=== PATIENT | male | born 1970 | race Caucasian/White ===

== ENCOUNTER → 2018-04-09 17:51 | Outpatient (CLI) | payer OTHER, SELFPAY ==
[2018-04-09 18:14] LABS: Hemoglobin A1c 6.3 % (4.2-6.3)
[2018-04-09 18:37] LABS: AST(SGOT) 25 U/L (15-37); Alanine Aminotransfer ALT/SGPT 56 U/L (16-61); Albumin, Serum 4.2 g/dL (3.2-5.0); Alkaline Phosphatase 64 U/L (45-117); Anion Gap 8 (5-15); BUN 20 mg/dL (7-18); BUN/Creat Ratio 19.2 RATIO (10-20); Bilirubin, Direct 0.11 mg/dL (0.00-0.30); Chloride 102 mmol/L (98-107); Cholesterol 160 mg/dL (200); Creatinine, Serum 1.04 mg/dL (0.70-1.30); EST Glomerular Filtration Rate 81 mL/min (>60); Est Glom Filt Rate - Afr Amer 98 mL/min (>60); Globulin 3.1 g/dL (2.2-4.2); Glucose 89 mg/dL (74-106); High Density Lipoprotein 45 mg/dL; Potassium 4.3 mmol/L (3.5-5.1); Protein, Total 7.3 g/dL (6.4-8.2); Sodium Level 139 mmol/L (136-145); Triglycerides 148 mg/dL; Very Low Density Lipoprotein 30 mg/dL (5-40)
[2018-04-09 18:46] LABS: Microalbumin,Random Urine 8.8 mg/L (NO RANGE EST.); Microalbumin:Creatinine Ratio 6.1 mg/g CRE (<30 mg/g CRE)
--- OUTSIDE RECORDS SUMMARY | 2018-06-14 08:06 | XMS RPT_ITS | Summary of Care ---
:1970 Author Organization [facility] Address [address] [place] [address] Phone Care Team Providers Name Role Phone Devorah Lu MD Primary Care Provider Reason for Visit Reason Comments Sinus Congestion s/sx started about 2 weeks ago, states was rxed an antibiotic per [facility], states did feel better while taking, but s/sx returned. Currently complains of nasal congestion, a headache, bilateral eye pressure, a cough that is occasionally productive with clear sputum, and feeling fatigued. Other states is taking more rx meds than in med list, but cannot remember what they are Encounter Details Date Type Department Care Team Description 02/22/2018 Office Visit [facility] Elizabeth Diana, Viral illness [place] [employer] (Primary Dx) [address] [place] [address] [place] [address] [phone] Allergies No Known Allergiesas of this encounter Medications Prescription Sig. Disp. Refills Start Date End Date Status LISINOPRIL PO Take by mouth. Active METFORMIN HCL PO Take by mouth. Active predniSONE 20 MG Tab Days 1-3 take 2 9 tablet 0 02/22/2018 Active tabletIndications: Viral tabs po daily, illness days 4-6 take 1 tab po daily as of this encounter Active Problems No known active problems Social History Tobacco Use Types Packs/Day Years Used Date Never Smoker Smokeless Tobacco: Never Used Alcohol Use Drinks/Week oz/Week Comments Yes occasional Sex Assigned at Date Recorded Not on file as of this encounter Last Filed Vital Signs Vital Sign Reading Time Taken Blood Pressure 133/86 02/22/2018 5:11 PM EST Pulse 73 02/22/2018 5:11 PM EST Temperature 36.6 ??C (97.8 ??F) 02/22/2018 5:11 PM EST Respiratory Rate 16 02/22/2018 5:11 PM EST Oxygen Saturation 98% 02/22/2018 5:11 PM EST Inhaled Oxygen Concentration - - Weight 97.1 kg (214 lb 1.6 oz) 02/22/2018 5:11 PM EST Height 172.7 cm (5' 8) 02/22/2018 5:11 PM EST Body Mass Index 32.55 02/22/2018 5:11 PM EST in this encounter Instructions Patient Instructions - Elizabeth Diana CNP - 02/22/2018 5:28 PM ESTStart prednisone as prescribed. Continue all other medications as previously prescribed by other providers. Follow-up with Primary Care Provider in 5-7 days if not improving or worsening of symptoms or blood glucose greater than 300 Go to the nearest Emergency Department for any Chest Pain or Shortness of Breath or blood glucose greater than 400 in this encounter Progress Notes Elizabeth Diana CNP - 02/22/2018 5:00 PM ESTFormatting of this note may be different from the original. URGENT CARE eNCOUnter CHIEF COMPLAINT Sinus Congestion (s/sx started about 2 weeks ago, states was rxed an antibiotic per [facility], states did feel better while taking, but s/sx returned. Currently complains of nasal congestion, a headache, bilateral eye pressure, a cough that is occasionally productive with clear sputum, and feeling fatigued.) and Other (states is taking more rx meds than in med list, but cannot remember what they are) CATRACHITO Sexton is a 47 y.o. male who presents today for continued sinus congestion x 3 weeks. He denies smoking or seasonal allergy hx. He states that he was RX'd a 7 day course of Amoxicillin by [facility] & he was doing better then 3 days ago the congestion returned w/out fever. He states that he is not taking anything for his symptoms currently. He denies sore throat or ear pain. She does complain of joint pain & generalized malaise. He has not received a Flu Vacc this season REVIEW OF SYSTEMS Review of Systems Constitutional: Negative for fever. HENT: Positive for congestion. Negative for ear pain and sore throat. Respiratory: Negative for cough. Cardiovascular: Negative for chest pain. Skin: Negative for rash. PAST MEDICAL HISTORY Past Medical History: Diagnosis Date ??? Diabetes mellitus ??? Essential hypertension, benign ??? Hyperlipidemia SURGICAL HISTORY Past Surgical History: Procedure Laterality Date ??? OTHER SURGICAL broken wrist repaired x2 CURRENT MEDICATIONS Current Outpatient Prescriptions Medication Sig Dispense Refill ??? LISINOPRIL PO Take by mouth. ??? METFORMIN HCL PO Take by mouth. No current facility-administered medications for this visit. ALLERGIES No Known Allergies FAMILY HISTORY Family History Problem Relation Age of Onset ??? Myocardial Infarction Father SOCIAL HISTORY Social History Social History ??? Marital status: Single Spouse name: N/A ??? Number of children: N/A ??? Years of education: N/A Occupational History ??? Not on file. Social History Main Topics ??? Smoking status: Never Smoker ??? Smokeless tobacco: Never Used ??? Alcohol use Yes Comment: occasional ??? Drug use: No ??? Sexual activity: Not on file Other Topics Concern ??? Domestic Violence No Social History Narrative ??? No narrative on file PHYSICAL EXAM Blood pressure 133/86, pulse 73, temperature 97.8 ??F (36.6 ??C), temperature source Temporal, resp.rate 16, height 1.727 m (5' 8), weight 97.1 kg (214 lb 1.6 oz), SpO2 98 %. Physical Exam Constitutional: He appears well-developed and well-nourished. HENT: Right Ear: Tympanic membrane normal. Left Ear: Tympanic membrane normal. Nose: Right sinus exhibits no maxillary sinus tenderness and no frontal sinus tenderness. Left sinusexhibits no maxillary sinus tenderness and no frontal sinus tenderness. Mouth/Throat: Oropharynx is clear and moist. Neck: Normal range of motion. Cardiovascular: Normal rate and regular rhythm. Lymphadenopathy: He has no cervical adenopathy. Nursing note and vitals reviewed. Diagnosis, Assessment & Plan: Camilo was seen today for sinus congestion and other. Diagnoses and all orders for this visit: Viral illness - predniSONE 20 MG Tab tablet; Days 1-3 take 2 tabs po daily, days 4-6 take 1 tab po daily Other orders - LISINOPRIL PO; Take by mouth. - METFORMIN HCL PO; Take by mouth. Start prednisone as prescribed. Continue all other medications as previously prescribed by other providers. Follow-up with Primary Care Provider in 5-7 days if not improving or worsening of symptoms or blood glucose greater than 300 Go to the nearest Emergency Department for any Chest Pain or Shortness of Breath or blood glucose greater than 400 Elizabeth Diana CNP 02/22/2018 in this encounter Plan of Treatment Health Maintenance Due Date Last Done Comments HIV SCREENING DISCUSSION 1981 TETANUS 1986 TDAP (ADULT) 12/23/1987 LIPID SCREENING 2008 INFLUENZA VACCINE (#1) 2017 as of this encounter Visit Diagnoses Diagnosis Viral illness - Primary Unspecified viral infection, in conditions classified elsewhere and of unspecified site
--- OUTSIDE RECORDS SUMMARY | 2018-06-14 08:07 | XMS RPT_ITS | Summary of Care ---
:1970 Author Organization [facility] Address [address] [place] [address] Phone Care Team Providers Name Role Phone Devorah Lu MD Primary Care Provider Reason for Referral Radiology (Emergency) Status Reason Specialty Diagnoses / Referred By Referred To Procedures Contact Contact New Request Procedures Ashok Irwin MD [address] [place] [phone] Radiology (Emergency) Status Reason Specialty Diagnoses / Referred By Referred To Procedures Contact Contact New Request Procedures Ashok Irwin MD [address] [place] [id number] Reason for Visit Reason Comments Hypertension out of BP meds Encounter Details Date Type Department Care Team Description 03/28/2018 [facility] Emergency Department [address] [place] [address] Allergies No Known Allergiesas of this encounter Medications Prescription Sig. Disp. Refills Start Date End Date Status LISINOPRIL PO Take by mouth. Active METFORMIN HCL PO Take 500 mg by Active mouth. predniSONE 20 MG Days 1-3 take 9 tablet 0 02/22/2018 Active Tab 2 tabs po tabletIndications: daily, days Viral illness 4-6 take 1 tab po daily diltiazem 120 MG Take 120 mg by 3 02/18/2018 Active Cap SR 24HR capsule mouth daily. XL pantoprazole 40 MG 1 (ONE) TABLET 3 02/18/[address] DR TWO TIMES DAILY atorvastatin 10 MG Take 10 mg by 3 02/18/2018 Active Tab tablet mouth daily. metformin 500 MG 2 (TWO) TABLET 3 02/18/2018 03/28/2018 Discontinued Tab tablet AT BEDTIME as of this encounter Active Problems Problem Noted Date Obesity: body mass index of 30.0-34.9 03/28/2018 Hypertensive urgency 03/28/2018 History of hypertension 03/28/2018 Nonintractable headache 03/28/2018 Social History Tobacco Use Types Packs/Day Years Used Date Never Smoker Smokeless Tobacco: Never Used Alcohol Use Drinks/Week oz/Week Comments Yes occasional Sex Assigned at Date Recorded Not on file as of this encounter Last Filed Vital Signs Vital Sign Reading Time Taken Blood Pressure 144/92 03/28/2018 1:34 PM EST Pulse 55 03/28/2018 1:34 PM EST Temperature 36.7 ??C (98 ??F) 03/28/2018 1:34 PM EST Respiratory Rate 18 03/28/2018 1:34 PM EST Oxygen Saturation 97% 03/28/2018 1:34 PM EST Inhaled Oxygen Concentration - - Weight 90.7 kg (200 lb) 03/28/2018 11:10 AM EST Height 172.7 cm (5' 8) 03/28/2018 11:10 AM EST Body Mass Index 30.41 03/28/2018 11:10 AM EST in this encounter Plan of Treatment Scheduled Tests Name Priority Associated Diagnoses Order Schedule ECG STAT One Time for 1 Occurrences starting 03/28/2018 until 03/28/2018 Health Maintenance Due Date Last Done Comments HIV SCREENING DISCUSSION 1981 TETANUS 1986 TDAP (ADULT) 12/23/1987 LIPID SCREENING 2008 INFLUENZA VACCINE (#1) 2017 01/05/2015, 01/20/2014, 11/30/2012 as of this encounter Procedures Procedure Name Priority Date/Time Associated Comments Diagnosis URINALYSIS, MACRO STAT 03/28/2018 11:30 Results for this AM EST procedure are in the results section. URINE MICROSCOPIC STAT 03/28/2018 11:30 Results for this AM EST procedure are in the results section. CBC, EDIF, PLATELET STAT 03/28/2018 11:05 Results for this AM EST procedure are in the results section. TROPONIN STAT 03/28/2018 11:05 Results for this AM EST procedure are in the results section. COMPREHENSIVE STAT 03/28/2018 11:05 Results for this METABOLIC PANEL AM EST procedure are in the results section. in this encounter Results URINE MICROSCOPIC (03/28/2018 11:30 AM) WBC, URINE NEGATIVE NEGATIVE /HPF [address] RBC, URINE 1 TO 5 NEGATIVE /HPF [address] Epithelial Cells UA NONE /HPF [address] Mucus NEGATIVE NEGATIVE [address] BACTERIA, URINE NEGATIVE NEGATIVE [address] CRYSTALS, URINE NONE NONE [address] CASTS, URINE NONE NONE /LPF [address] COMMENT, URINE CULTURE CRITERIA NOT MET, [facility] NO CULTURE PERFORMED. [address] Performing Organization Address City/[facility]/Zipcode Phone Number [address] [address] [facility] URINALYSIS, MACRO (03/28/2018 11:30 AM) COLOR, URINE YELLOW YELLOW [address] APPEARANCE, URINE CLEAR CLEAR [address] SPECIFIC GRAVITY, URINE 1.015 1.010 - 1.[address] PH URINE 7.0 5.0 - 7.[address] PROTEIN, URINE NEGATIVE NEGATIVE mg/dl [address] GLUCOSE, URINE NEGATIVE NEGATIVE mg/dl [address] KETONES, URINE NEGATIVE NEGATIVE mg/dl [address] BILIRUBIN, URINE NEGATIVE NEGATIVE [address] BLOOD, URINE DIPSTICK TRACE-LYSED (A) NEGATIVE [address] NITRITES, URINE NEGATIVE NEGATIVE [address] UROBILINOGEN, URINE 0.2 0.2 - 1.0 mg/dl [address] LEUKOCYTE ESTERASE, URINE NEGATIVE NEGATIVE [address] Performing Organization Address City/[facility]/Zipcode Phone Number [address] [address] [facility] TROPONIN (03/28/2018 11:05 AM) TROPONIN <0.02 0 - 0.08 ng/mL [address] Performing Organization Address City/State/Zipcode Phone Number [address] [address] [facility] COMPREHENSIVE METABOLIC PANEL (03/28/2018 11:05 AM) GLUCOSE 101 (H) 70 - 100 MG/DL [address] NORMAL <100 mg/dL [facility] PREDIABETES 101-126 mg/dL DIABETES 126 mg/dL or higher BUN 14 7 - 20 MG/DL [address] CREATININE SERUM 1.0 0.66 - 1.25 MG/DL [address] SODIUM 135 (L) 136 - 145 MMOL/L [address] POTASSIUM 4.1 3.5 - 5.1 MMOL/L [address] CHLORIDE 99 98 - 107 MMOL/L [address] CALCIUM 9.5 8.4 - 10.2 MG/DL [address] PROTEIN, TOTAL 7.8 6.3 - 8.2 GM/DL [address] ALBUMIN 4.7 3.5 - 5.0 G/dl [address] BILIRUBIN, TOTAL 0.8 0.2 - 1.2 MG/DL [address] AST 38 15 - 41 IU/L [address] ALKALINE PHOSPHATASE 50 38 - 126 IU/L [address] CARBON DIOXIDE (CO2) 28 22 - 30 MMOL/L [address] A/G Ratio 1.5 1.3 - 2.[address] ALT 59 17 - 63 IU/L [address] ESTIMATED GFR, NON >60 ml/min/1.73sq.m [address] ESTIMATED GFR, >60 ml/min/1.73sq.m [address] GFR COMMENT Average GFR for 40-49 years old = 99. [facility] Comment: [facility] Chronic Kidney disease, GFR = <60. [facility] - Kidney failure, GFR = <15. [facility] The GFR estimate is not adjusted for extreme body surface area or acute process, nor has it been validated for women or ethnic groups other than and . Performing Organization Address City/State/Zipcode Phone Number [address] [place] [address] [facility] CBC, EDIF, PLATELET (03/28/2018 11:05 AM) WBC (WHITE BLOOD COUNT) 7.8 3.6 - 11.0 /cmm [address] RBC 4.94 4.0 - 6.1 /cmm [address] HEMOGLOBIN (HGB) 14.3 14.0 - 18.0 G/DL [address] HEMATOCRIT (HCT) 41.6 (L) 42.0 - 52.0 % [address] MEAN CELL VOLUME 84.3 80.0 - 100.[address] Mean Cell HGB 28.9 26.0 - 35.[address] MEAN CELL HGB CONCENTRATION 34.3 27.0 - 37.0 G/DL [address] RBC DISTRIBUTION 13.8 11.5 - 14.5 % [address] PLATELET COUNT 266 130.0 - 400.0 /cmm [address] MEAN PLATELET VOLUME 8.0 7.4 - 11.[address] DIFFERENTIAL TYPE AUTO DIFF % [address] NEUTROPHILS 43.8 37.0 - 75.0 % [address] LYMPHOCYTE 44.7 20.0 - 55.0 % [address] MONOCYTE 7.8 0.0 - 10.0 % [address] EOSINOPHIL 3.1 0.0 - 11.0 % [address] BASOPHIL 0.6 0.0 - 2.0 % [address] Absolute Neutrophil Count 3.4 1.0 - 7.[address] LYMPHOCYTES, ABSOLUTE 3.[address] MONOCYTES, ABSOLUTE 0.[address] ABSOLUTE EOSINOPHIL COUNT 0.[address] ABSOLUTE BASOPHIL COUNT 0.[address] Performing Organization Address City/State/Zipcode Phone Number [address] [address] [facility] in this encounter Visit Diagnoses Diagnosis Chest pain, unspecified type - Primary Near syncope Syncope and collapse Essential hypertension Unspecified essential hypertension Administered Medications Inactive Administered Medications - up to 3 most recent administrations Medication Order MAR Action Action Date Dose Rate Site aspirin chewable tablet 324 mg Given 03/28/2018 11:20 EST 324 mg 324 mg, Oral, ONCE, 1 dose, 03/28/18 at 1200 in this encounter
--- OUTSIDE RECORDS SUMMARY | 2018-06-14 08:07 | XMS RPT_ITS | Summary of Care ---
:1970 Author Organization [facility] Address [address] [place] [address] Phone Care Team Providers Name Role Phone Devorah Lu MD Primary Care Provider Encounter Details Date Type Department Care Team Description 03/31/2018 Outside Orders [facility] Martín Olvera, [address] [facility] MEDICAL SUPPORT [place] [address] [address] [facility] [phone] [place] [address] Allergies No Known Allergiesas of this encounter Medications Prescription Sig. Disp. Refills Start Date End Date Status METFORMIN HCL PO Take 500 mg by Active mouth. diltiazem 120 MG Cap Take 120 mg by 3 02/18/2018 Active SR 24HR capsule XL mouth daily. pantoprazole 40 MG Tab 1 (ONE) TABLET 3 02/18/[address] HENNING TWO TIMES DAILY atorvastatin 10 MG Tab Take 10 mg by 3 02/18/2018 Active tablet mouth daily. lisinopril 20 MG Tab Take 1 tablet by 30 tablet 3 03/29/2018 Active mouth daily. aspirin 81 MG Tab Take 1 tablet by 30 tablet 0 03/29/2018 04/28/2018 Active mouth daily. as of this encounter Active Problems Problem Noted Date Obesity: body mass index of 30.0-34.9 03/28/2018 Hypertensive urgency 03/28/2018 History of hypertension 03/28/2018 Nonintractable headache 03/28/2018 Chest pain 03/28/2018 Family history of early CAD 03/28/2018 Diabetes mellitus Hyperlipidemia Resolved Problems Problem Noted Date Resolved Date Essential hypertension, benign 03/28/2018 Social History Tobacco Use Types Packs/Day Years Used Date Never Smoker Smokeless Tobacco: Never Used Alcohol Use Drinks/Week oz/Week Comments Yes occasional Sex Assigned at Date Recorded Not on file as of this encounter Functional Status Functional Status Response Date of Assessment Are you deaf or do you have serious difficulty hearing? No 03/28/2018 Are you blind or do you have serious difficulty seeing, No 03/28/2018 even when wearing glasses? Do you have serious difficulty walking or climbing stairs No 03/28/2018 (5 years or older)? Do you have difficulty dressing or bathing (5 yrs or No 03/28/2018 older)? Because of a physical, mental, or emotional condition, do No 03/28/2018 you have difficulty doing errands alone such as visiting a doctor's office or shopping (5 yrs or older)? Cognitive Status Response Date of Assessment Because of a physical, mental, or emotional condition, do No 03/28/2018 you have serious difficulty concentrating, remembering, or making decisions (5 yrs or older)? as of this encounter Plan of Treatment Health Maintenance Due Date Last Done Comments HIV SCREENING DISCUSSION 1981 TETANUS 1986 TDAP (ADULT) 12/23/1987 INFLUENZA VACCINE (#1) 2017 01/05/2015, 01/20/2014, 11/30/2012 LIPID SCREENING 03/29/2023 03/29/2018 as of this encounter Procedures Procedure Name Priority Date/Time Associated Diagnosis Comments ECHOCARDIOGRAM (SCANNED) Routine 03/31/2018 12:00 AM EST in this encounter Results ECHOCARDIOGRAM (SCANNED) (03/31/2018) Narrative Performed At in this encounter
--- OUTSIDE RECORDS SUMMARY | 2018-06-14 08:07 | XMS RPT_ITS | Summary of Care ---
:1970 Author Organization [facility]'s [facility] Address [address] 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 Disp. Refills Start Date End Date Status LISINOPRIL PO Take by mouth. Active METFORMIN HCL PO Take by mouth. Active predniSONE 20 MG Tab Days 1-3 take 2 9 tablet 0 02/22/2018 Active tabletIndications: tabs po daily, Viral illness days 4-6 take 1 tab po daily diltiazem 120 MG Cap SR Take 120 mg by 3 02/18/2018 Active 24HR capsule XL mouth daily. pantoprazole 40 MG Tab 1 (ONE) TABLET DR 3 02/18/[address] TWO TIMES DAILY metformin 500 MG Tab 2 (TWO) TABLET AT 3 02/18/2018 Active tablet BEDTIME atorvastatin 10 MG Tab Take 10 mg by 3 02/18/2018 Active tablet mouth daily. as of this encounter Active [...] Vital Sign Reading Time Taken Blood Pressure 190/128 03/28/2018 10:13 AM EST Pulse 80 03/28/2018 10:13 AM EST Temperature 35.8 ??C (96.5 ??F) 03/28/2018 10:13 AM EST Respiratory Rate 18 03/28/2018 10:13 AM EST Oxygen Saturation 99% 03/28/2018 10:13 AM EST Inhaled Oxygen Concentration - - Weight 96.3 kg (212 lb 6.4 oz) 03/28/2018 10:13 AM EST Height 172.7 cm (5' 8) 03/28/2018 10:13 AM EST Body Mass Index 32.3 03/28/2018 10:13 AM EST in this encounter Progress Notes Stephan Sahni, MASH PROCESSING OPERATOR-MUSEUM INFORMATICS SPECIALIST - 03/28/2018 10:05 AM ESTFormatting of this note may be different from the original. This is a 47-year-old male it arrives to the urgent care for reasons of not feeling right. He states over the last 3 days he is not been feeling right. He has been having headache. He has been feeling foggy head. He thought maybe he was supposed to be taking another blood pressure pill but he was unsure why he had not been taking it. After investigation and calling the pharmacy he realized that hehad been out of his lisinopril. He began checking his blood pressure at home and it had been very high. Today his symptoms were worse and he is not really able to explain but he just is not feel right. He is also having chest pressure. He denies any specific pain but describes the feeling in his chest pressure and heaviness. Denies any neck pain. Denies any pain between the shoulder blades. Denies any numbness or tingling, no difficulty moving extremities, no dizziness or lightheadedness, no visualchanges. He does admit to the headache. He is not been sick in any other way. He denies any fevers or chills. No abdominal pain, nausea, vomiting, diarrhea. On initial impression he is certainly non-toxic appearance. He does not appear to be any acute distress. ROS Constitutional: Denies Fever. Denies chills. Eyes: Denies visual change or eye discharge Head/Ear/Nose/Throat: Denies earache or sore throat Respiratory: Denies shortness of breath. Denies cough Cardiovascular: Positive chest pressure and heaviness Gastrointestinal: Denies abdominal pain, Denies nausea, Denies vomiting Genitourinary: Denies dysuria Musculoskeletal: Denies Joint pain, Denies muscle pain Skin: Denies Rash Neurological: Positive Headache, Denies focal neuro symptoms. not feeling right Social History Substance Use Topics ??? Smoking status: Never Smoker ??? Smokeless tobacco: Never Used ??? Alcohol use Yes Comment: occasional EXAM Blood pressure (!) 190/128, pulse 80, temperature 96.5 ??F (35.8 ??C), temperature source Temporal, resp. rate 18, height 1.727 m (5' 8), weight 96.3 kg (212 lb 6.4 oz), SpO2 99 %. Primary Assessment: Airway patent. Respirations unlabored, Normal respiratory effort Constitutional: Vital signs reviewed. Well appearing. No distress. Non toxic in Psychiatric: Mental status appropriate. Normal affect Skin: Warm and dry. No rashes noted Eyes: Conjunctiva clear. No photophobia HENT: Normocephalic. Normal Tms. Posterior pharynx clear. Negative cervical lymphadenopathy. Tracheal sounds free of stridor. Thorax/ Respiratory: Respiratory effort non-labored. BBS clear ant/post. No wheezes, rales or rhonchi. Gastrointestinal: Abdomen soft and non-tender Genitourinary: NA Musculoskeletal: Neck supple. No meningeal signs. Neurologic: Alert and Oriented. No focal neurological deficits. Stroke scale negative Diagnosis: There were no encounter diagnoses. 1. Hypertensive urgency 2. Chest pressure 3. Nonintractable headache, unspecified chronicity pattern, unspecified headache type 4. History of hypertension Plan: 1. Hypertensive urgency 2. Chest pressure 3. History of hypertension with the patient's blood pressure here in the urgent care with a known history of hypertension and has not been taking all of his blood pressure medications along with being symptomatic with associatedchest pressure and heaviness and headache I did suggest and recommend the patient go to the emergency department for further evaluation and possible management. He did leave the urgent care with a ride in a stable condition to go to [facility] emergency department. -I did call report to Thalia the charge nurse. Stephan Sahni, MASH PROCESSING OPERATOR-MUSEUM INFORMATICS SPECIALIST 03/28/2018in this encounter Plan of Treatment Health Maintenance Due Date Last Done Comments HIV SCREENING DISCUSSION 1981 TETANUS 1986 TDAP (ADULT) 12/23/1987 LIPID SCREENING 2008 INFLUENZA VACCINE (#1) 2017 01/05/2015, 01/20/2014, 11/30/2012 as of this encounter Visit Diagnoses Diagnosis Hypertensive urgency - Primary Unspecified essential hypertension Chest pressure Other chest pain Nonintractable headache, unspecified chronicity pattern, unspecified headache type History of hypertension Personal history of other diseases of circulatory system
--- OUTSIDE RECORDS SUMMARY | 2018-06-14 08:07 | XMS RPT_ITS | Summary of Care ---
:1970 Author Organization [facility] Address [address] [place] [address] Phone Care Team Providers Name Role Phone Devorah Lu MD Primary Care Provider Reason for Referral Consultation (Urgent) Status Reason Specialty Diagnoses / Referred By Referred To Procedures Contact Contact New Request Cardiovascular Diagnoses Stable angina pectoris Parviz Olvera II, Medicine Nayan Ivy MD PARTS COUNTER SALESPERSON-ASSEMBLY LINE LEADER [address] [facility] [place] [phone] Phone: Fax: Scheduling Instructions . Radiology (Routine) Status Reason Specialty Diagnoses / Referred By Referred To Procedures Contact Contact New Request Procedures Martín Olvera, ECG PARTS COUNTER SALESPERSON-ASSEMBLY LINE LEADER [address] [place] [address] Radiology (Routine) Status Reason Specialty Diagnoses / Referred By Referred To Procedures Contact Contact Auth Not Needed Procedures Martín Olvera NUC MYOCARD PERF D, PARTS COUNTER SALESPERSON-ASSEMBLY LINE LEADER STRESS MIBI [address] [facility] CO CHG MYOCARDIAL [place], [place] SPECT MULTIPLE [address] STUDIES Phone: [place] CARDIAC STRESS [phone] TST,TRACING ONLY Radiology (Routine) Status Reason Specialty Diagnoses / Referred By Referred To Procedures Contact Contact New Request Procedures Martín Olvera, ECG PARTS COUNTER SALESPERSON-ASSEMBLY LINE LEADER [address] [place] [address] Radiology (Routine) Status Reason Specialty Diagnoses / Referred By Referred To Procedures Contact Contact Auth Not Needed Procedures AmyMartín vences NUC MYOCARD PERF D, PARTS COUNTER SALESPERSON-ASSEMBLY LINE LEADER STRESS MIBI [address] [facility] CO CHG MYOCARDIAL [place], [place] SPECT [place]ULTIPLE [address] STUDIES Phone: [place] CARDIAC STRESS [phone] TST,TRACING ONLY Encounter Details Date Type Department Care Team Description 03/28/2018 - Hospital Encounter [facility] Med Surg Samuel Brannon Chest pain 03/29/2018 [address] [facility] D, DO [place] [address] [facility] [address] [place] [id number] [phone] Allergies No Known Allergiesas of this encounter Medications Prescription Sig. Disp. Refills Start Date End Date Status METFORMIN HCL PO Take 500 mg Active by mouth. diltiazem 120 MG Take 120 mg 3 02/18/2018 Active Cap SR 24HR capsule by mouth XL daily. pantoprazole 40 MG 1 (ONE) 3 02/18/[address] TABLET DR TWO TIMES DAILY atorvastatin 10 MG Take 10 mg by 3 02/18/2018 Active Tab tablet mouth daily. lisinopril 20 MG Take 1 tablet 30 tablet 3 03/29/2018 Active Tab by mouth daily. aspirin 81 MG Tab Take 1 tablet 30 tablet 0 03/29/2018 04/28/2018 Active by mouth daily. LISINOPRIL PO Take by 03/29/2018 Suspended mouth. predniSONE 20 MG Days 1-3 take 9 tablet 0 02/22/2018 03/29/2018 Discontinued Tab 2 tabs po tabletIndications: daily, days Viral illness 4-6 take 1 tab po daily as of this encounter Active Problems Problem [...] Vital Sign Reading Time Taken Blood Pressure 105/52 03/29/2018 3:25 PM EST Pulse 62 03/29/2018 3:25 PM EST Temperature 36.4 ??C (97.5 ??F) 03/29/2018 3:25 PM EST Respiratory Rate 18 03/29/2018 3:25 PM EST Oxygen Saturation 94% 03/29/2018 3:25 PM EST Inhaled Oxygen Concentration - - Weight 95.9 kg (211 lb 6.7 oz) 03/29/2018 4:33 AM EST Height 172.7 cm (5' 8) 03/28/2018 2:50 PM EST Body Mass Index 32.15 03/29/2018 4:33 AM EST in this encounter Functional Status Functional Status Response [...] yrs or older)? as of this encounter Discharge Instructions Discharge Instr - Diet - Salud Parker RN - 03/29/2018 5:50 PM [facility] dietDischarge Instr - Activity - Salud Parker, RIC - 03/29/2018 5:50 PM ESTAs tolerated The following attachments cannot be sent through Care Everywhere.Aspirin, ASA chewable tablets (Armenian)Lisinopril tablets (Armenian)in this encounter Plan of Treatment Pending Results Name Priority Associated Diagnoses Date/Time ECHOCARDIOGRAM Routine 03/29/2018 9:13 AM EST Scheduled Tests Name Priority Associated Diagnoses Order Schedule POCT GLUCOSE Routine QACHS - 0745,1030,1530,2100 until discontinued starting 03/28/2018, 4 completed ECHOCARDIOGRAM Routine One Time for 1 Occurrences starting 03/28/2018 until 03/28/2018 CBC, EDIF, PLATELET Routine Every morning Lab until discontinued starting 03/29/2018, 1 completed MAGNESIUM Routine Every morning Lab until discontinued starting 03/29/2018, 1 completed RENAL FUNCTION PANEL Routine Every morning Lab until discontinued starting 03/29/2018, 1 completed ECG Routine One Time for 1 Occurrences starting 03/29/2018 until 03/29/2018 Scheduled Referrals Name Priority Associated Diagnoses Order Schedule AMB REFERRAL TO CARDIOVASCULAR Urgent Stable angina pectoris Ordered: 03/29/2018 MEDICINE Health Maintenance Due Date Last Done Comments HIV SCREENING DISCUSSION 1981 TETANUS 1986 TDAP (ADULT) 12/23/1987 LIPID SCREENING 2008 INFLUENZA VACCINE (#1) 2017 01/05/2015, 01/20/2014, 11/30/2012 as of this encounter Procedures Procedure Name Priority Date/Time Associated Comments Diagnosis POCT GLUCOSE Routine 03/29/2018 12:42 PM Results for this EST procedure are in the results section. NUC MYOCARD PERF Routine 03/29/2018 12:13 PM Results for this STRESS MIBI EXERCISE EST procedure are in the results section. POCT GLUCOSE Routine 03/29/2018 7:40 AM Results for this EST procedure are in the results section. CBC, EDIF, PLATELET Today 03/29/2018 5:30 AM Results for this EST procedure are in the results section. TSH Today 03/29/2018 5:30 AM Results for this EST procedure are in the results section. MAGNESIUM Today 03/29/2018 5:30 AM Results for this EST procedure are in the results section. HEMOGLOBIN A1C Today 03/29/2018 5:30 AM Results for this EST procedure are in the results section. RENAL FUNCTION PANEL Today 03/29/2018 5:30 AM Results for this EST procedure are in the results section. LIPID PANEL W Today 03/29/2018 5:30 AM Results for this CALCULATED LDL EST procedure are in the results section. TROPONIN Today 03/28/2018 10:31 PM Results for this EST procedure are in the results section. POCT GLUCOSE Routine 03/28/2018 9:12 PM Results for this EST procedure are in the results section. POCT GLUCOSE Routine 03/28/2018 4:35 PM Results for this EST procedure are in the results section. TROPONIN Today 03/28/2018 4:30 PM Results for this EST procedure are in the results section. SCREEN: MRSA ONLY, Today 03/28/2018 2:50 PM Results for this NARES (ISOLATION EST procedure are in SCREEN) the results section. in this encounter Results POCT GLUCOSE (03/29/2018 12:42 PM) POCT GLUCOSE, WHOLE BLOOD 104 (A) 70 - 99 mg/dL NUC MYOCARD PERF STRESS MIBI EXERCISE (03/29/2018 12:13 PM) APHRMAX 171 bpm Narrative Performed At Tim Jernigan MD? 03/29/2018?3:58 PM Gated Lexiscan Myocardial Perfusion Scintigraphy Same Day Rest/Stress Procedure Camilo Sexton 1970 47 y.o. male 03/28/2018?2:47 PM Ordering Physician: Samuel Brannon DO [address] [place] [id number] Indication Indication for stress testing is chest pain Baseline Electrocardiogram Sinus rhythm SPECT Tomography Following the IV injection of 9.8 mCi of IV Cardiolite, TC-99m supine gamma camera imaging was done using 180 degree SPECT technique.?Imaging was done in standard short axis, vertical and long axis views.?29.7mCi of IV Cardiolite was injected immediately after IV Lexiscan injection and SPECT imaging was repeated.?Gated SPECT imaging was also done per protocol. Lexiscan Stress Test Results 0.4 mg of IV Lexiscan was injected over 20 seconds.?It was immediately flushed with 10 ml IV normal Saline and immediately afterward IV Cardiolite was re injected. -?Patient experienced mild feeling of warmth after IV Lexiscan infusion ?Which represents a normal physiological response to IV Lexiscan. -?Normal hemodynamic response was noted. -?No arrhythmias were noted. -?No electrocardiographic changes suggestive of ischemia were noted. -?No new EKG changes above abnormal baseline were noted. Impression Negative electrocardiographic Lexiscan stress test for ischemia. Tomographic Results ?Normal and uniform uptake of Cardiolite is noted in all other wall segments during stress and at rest.?The left ventricular size is normal.?Gated SPECT imaging post stress revealed normal wall motion and contractility of all wall segments.?The calculated ejection fraction is 74% and the calculated EDV is 101ml on post stress images. TID 0.69 No prior studies are available for comparison. Conclusion This is a normal study with no evidence of infarct or stress induced ischemia. Recommendations Continue current medical therapy. POCT GLUCOSE (03/29/2018 7:40 AM) POCT GLUCOSE, WHOLE BLOOD 99 70 - 99 mg/dL RENAL FUNCTION PANEL (03/29/2018 5:30 AM) GLUCOSE 106 (H) 70 - 100 MG/DL [facility], [facility] Comment: NORMAL <100 mg/dL PREDIABETES 101-126 mg/dL DIABETES 126 mg/dL or higher BUN 17 7 - 20 MG/DL [facility] CREATININE SERUM 1.1 0.7 - 1.2 MG/DL [facility] SODIUM 141 137 - 145 MMOL/L [facility] POTASSIUM 4.5 3.5 - 5.1 MMOL/L [facility] CHLORIDE 103Comment: Please note: 98 - 107 MMOL/L [facility] Triglyceride levels of 600mg/dL or higher may positively bias chloride results by approximately 2.1 mmol CARBON DIOXIDE (CO2) 31 (H) 22 - 30 MMOL/L [facility] ALBUMIN 4.0 3.5 - 5.0 G/dl [facility] CALCIUM 9.4 8.4 - 10.2 MG/DL [facility] PHOSPHORUS 4.4 2.5 - 4.5 MG/DL [facility] ESTIMATED GFR, NON >60 ml/min/1.73sq.m [facility] AMER ESTIMATED GFR, >60 ml/min/1.73sq.m [facility] URUGUAYAN GFR COMMENT Average GFR for 40-49 years old = 99. [facility] Comment: Chronic Kidney disease, GFR = <60. Kidney failure, GFR = <15. The GFR estimate is not adjusted for extreme body surface area or acute process, nor has it been validated for women or ethnic groups other than and . Performing Organization Address City/State/Zipcode Phone Number [facility], [address] [place] [address] MAGNESIUM (03/29/2018 5:30 AM) MAGNESIUM 1.8 1.6 - 2.3 MG/DL [facility] Performing Organization Address City/State/Zipcode Phone Number [facility], [address] [place] [address] CBC, EDIF, PLATELET (03/29/2018 5:30 AM) WBC (WHITE BLOOD COUNT) 7.4 3.6 - 11.0 /cmm [facility] - [address] - [facility] RBC 4.60 4.0 - 6.1 /cmm [facility] - [address] - [facility] HEMOGLOBIN (HGB) 13.3 (L) 14.0 - 18.0 G/DL [facility] - [address] - [facility] HEMATOCRIT (HCT) 39.8 (L) 42.0 - 52.0 % [place] [phone] - [facility] MEAN CELL VOLUME 86.5 80.0 - 100.0 FL [facility] - [address] - [facility] Mean Cell HGB 28.9 26.0 - 35.0 PG [facility] - [address] - [facility] MEAN CELL HGB CONCENTRATION 33.4 27.0 - 37.0 G/DL [facility] - [address] - [facility] RBC DISTRIBUTION 13.5 11.5 - 14.5 % [place] [phone] - [facility] PLATELET COUNT 239 130.0 - 400.0 /cmm [facility] - [address] - [facility] MEAN PLATELET VOLUME 7.9 7.4 - 11.0 FL [facility] - [address] - [facility] DIFFERENTIAL TYPE AUTO DIFF % [place] [phone] - [facility] NEUTROPHILS 56.9 37.0 - 75.0 % [facility] - [address] - [place] LYMPHOCYTE 32.6 20.0 - 55.0 % [facility] - [address] - [place] MONOCYTE 8.1 0.0 - 10.0 % [facility] - [address] - [place] EOSINOPHIL 1.9 0.0 - 11.0 % [facility] - [address] - [place] BASOPHIL 0.5 0.0 - 2.0 % [facility] - [address] - [place] Absolute Neutrophil Count 4.2 1.0 - 7.0 x10 [facility] - [address] - [place] LYMPHOCYTES, ABSOLUTE 2.40 X10 [facility] - [address] - [place] MONOCYTES, ABSOLUTE 0.6 X10 [facility] - [address] - [place] ABSOLUTE EOSINOPHIL COUNT 0.10 X10 [facility] - [address] - [place] ABSOLUTE BASOPHIL COUNT 0.0 X10 [facility] - [address] - [place] Performing Organization Address City/State/Zipcode Phone Number [facility] - [address] [place] [place] [address] 6[address] - [place] HEMOGLOBIN A1C (03/29/2018 5:30 AM) HEMOGLOBIN A1C 5.8 0 - 6 % [facility] Comment: NORMAL <5.7% PREDIABETES 5.7-6.4% DIABETES 6.5% OR HIGHER Estimated Average Glucose 120 mg/dL [facility] Performing Organization Address City/State/Zipcode Phone Number [facility], [facility], [address] [place] [address] LIPID PANEL W CALCULATED LDL (03/29/2018 5:30 AM) CHOLESTEROL 149 120 - 200 MG/DL [facility] TRIGLYCERIDE 130 0 - 150 MG/DL [facility] HDL CHOLESTEROL 40 26 - 63 MG/DL [facility] LDL CHOLESTEROL, CALCULATED 83 MG/DL [facility] VLDL 26 (H) 5.0 - 25 MG/DL [facility] TCHOL/HDL RATIO, MANUAL ENTER 3.73 RATIO [facility] Comment: RISK?TOTAL/HDL RATIO ?MEN? WOMEN 1/2 AVERAGE?3.43?3.27 AVERAGE?4.97?4.44 2X AVERAGE? 9.55?7.05 3X AVERAGE?23.99? 11.04 Performing Organization Address [facility] Phone Number [facility], [facility], [address] [place] [address] TSH (03/29/2018 5:30 AM) TSH 1.850 0.46 - 4.68 uIU/ML [facility] - [address] - [facility] Performing Organization Address [facility] Phone Number [facility] - [address] [place] [address] [address] - [place] TROPONIN (03/28/2018 10:31 PM) TROPONIN <0.02 0 - 0.08 ng/mL [facility] Performing Organization Address [facility] Phone Number [facility], [facility], [address] [place] [address] POCT GLUCOSE (03/28/2018 9:12 PM) POCT GLUCOSE, WHOLE BLOOD 77 70 - 99 mg/dL POCT GLUCOSE (03/28/2018 4:35 PM) POCT GLUCOSE, WHOLE BLOOD 116 (A) 70 - 99 mg/dL TROPONIN (03/28/2018 4:30 PM) TROPONIN <0.02 0 - 0.08 ng/mL [facility] - [address] - [facility] Performing Organization Address City/State/Zipcode Phone Number [facility] - [address] [place] [address] [address] - [place] SCREEN: MRSA ONLY, NARES (ISOLATION SCREEN) (03/28/2018 2:50 PM) SCREEN: MRSA NEGATIVE [address] STAPHYOCOCCUS AUREUS BY PCR POSITIVEComment: TESTING [facility] PERFORMED BY PCR [address] Specimen NARES Performing Organization Address City/[facility]/Zipcode Phone Number [facility] - [address] [place] [phone] [facility] in this encounter Visit Diagnoses Diagnosis Stable angina pectoris - Primary Precordial pain Mixed hyperlipidemia Hypertensive urgency Unspecified essential hypertension Administered Medications Active Administered Medications - up to 3 most recent administrations Medication Order MAR Action Action Date Dose Rate Site acetaminophen (TYLENOL) tablet 325-650 Given 03/28/2018 17:24 EST 650 mg mg 325-650 mg, Oral, EVERY 4 HOURS NEEDED, Starting 03/28/18 at 1602, Until Discontinued, Mild Pain, Maximum dose of acetaminophen is 4000 mg from all sources in 24 hours. Given 03/29/2018 00:49 EST 650 mg atorvastatin (LIPITOR) tablet 10 mg Given 03/29/2018 08:04 EST 10 mg 10 mg, Oral, DAILY, First dose on 03/29/18 at 0900, Until Discontinued dextrose 50% injection 25 g 25 g, Intravenous, NEEDED, Starting 03/28/18 at 1603, Until Discontinued, Blood glucose <80 mg/dL, Give Dextrose 50% IV 50 ml (full amp) notify physician and repeat blood sugar in 20 minutes. May repeat dextrose X1 if blood sugar less than 60 mg/ml. If unresponsive call INSURANCE SOLICITOR diltiazem (CARDIZEM CD) capsule XL 120 mg Given 03/29/2018 08:04 EST 120 mg 120 mg, Oral, DAILY, First dose on 03/29/18 at 0900, Until Discontinued, Slow release product. Do not chew or crush. insulin lispro (HumaLOG) injection Subcutaneous, 4 TIMES DAILY WITH MEALS & AT BEDTIME, First dose on 03/28/18 at 1700, Until Discontinued, Sliding Scale parameters: Blood glucose under 70 = call physician; 151 - 200 = 2 units; 201 - 250 = 4 units; 251 - 300 = 6 units; 301 - 350 = 8 units; 351 - 400 = 10 units; Over 400 = call physician. lisinopril (PRINIVIL, ZESTRIL) tablet 20 mg Given 03/28/2018 17:17 EST 20 mg 20 mg, Oral, DAILY, First dose on 03/28/18 at 1630, Until Discontinued Given 03/29/2018 08:03 EST 20 mg metformin (GLUCOPHAGE) tablet 500 mg Given 03/28/2018 17:17 EST 500 mg 500 mg, Oral, 2 TIMES DAILY WITH MEALS, First dose on 03/28/18 at 1700, Until Discontinued Given 03/29/2018 08:03 EST 500 mg nitroGLYCERIN (NITRO-BID) 2 % ointment 1 inch Given 03/28/2018 17:17 EST 1 inch 1 inch, Topical, 3 TIMES DAILY, EVERY 6 HOURS, First dose on 03/28/18 at 1800, Until Discontinued Given 03/29/2018 13:36 EST 1 inch ondansetron 4mg/2ml (ZOFRAN) injection 4 mg Given 03/29/2018 00:50 EST 4 mg 4 mg, Intravenous, EVERY 4 HOURS NEEDED, Starting 03/28/18 at 2041, Until Discontinued, nausea pantoprazole (PROTONIX) tablet DR 40 mg Given 03/28/2018 20:21 EST 40 mg 40 mg, Oral, 2 TIMES DAILY, First dose on 03/28/18 at 2100, Until Discontinued, Swallow whole; do not crush or chew. Given 03/29/2018 08:04 EST 40 mg potassium chloride (K-DUR, KLOR-CON M20) tablet ER 40 mEq 40 mEq, Oral, DAILY NEEDED, Starting 03/28/18 at 1610, Until Discontinued, give oral dose if potassium between 3.4 and 3.0 on daily labs and able to tolerate oral medications, Swallow tablets whole; do not crush, chew, or suck on tablet. Tablet may also be broken in half and each half swallowed separately. potassium chloride 40 mEq in 0.9% sodium chloride 500 ml IVPB 40 mEq, Intravenous, at 125 mL/hr, Administer over 4 Hours, DAILY NEEDED, Starting 03/28/18 at 1610, Until Discontinued, give IV dose if potassium less than 3.0 on daily labs OR between 3.4 and 3.0 and UNable to tolerate oral medications Inactive Administered Medications - up to 3 most recent administrations Medication Order MAR Action Action Date Dose Rate Site TC-99M Cardiolite Given - Radiology 03/29/2018 09:40 9.8 millicuries Right Arm (Sestamibi) IVPB EST 5-30 millicurie 5-30 millicurie, Intravenous, NEEDED, 2 doses, Starting 03/29/18 at 0959, Until 03/29/18 at 1110 Given - Radiology 03/29/2018 11:10 EST 29.7 millicuries Right Arm in this encounter
--- OUTSIDE RECORDS SUMMARY | 2018-06-14 08:07 | XMS RPT_ITS ---
:1970 Author Organization OHIP Care Team Providers Name Role Phone TYRONE JEFFERSON Attending Unavailable SELF, SELF Referring Unavailable LEXI TORRES Attending Unavailable SELF, SELF Referring Unavailable TONY ESTRADA Admitting Unavailable TONY ESTRADA Attending Unavailable TONY ESTRADA Referring Unavailable AURORA II SUMANTH B Consulting Unavailable Devorah Lu Attending Unavailable Devorah Lu Primary Care Unavailable Devorah Lu Referring Unavailable PROBLEMS PROBLEMS DATE TYPE CONDITION / CODE ATTENDING STATUS SOURCE 04/10/2018 Unknown R73.02 - Impaired Devorah Lu Active [facility] glucose tolerance [facility] (oral[facility] Hospital R73.02(ICD-10) Repository 04/10/2018 Unknown I10 - Essential Devorah Lu Active [facility] (primary) Community hypertension / Hospital I10(ICD-10) Repository 04/10/2018 Unknown 790.22 - Impaired Devorah Lu Active [facility] glucose tolerance Community test (oral) / Hospital 790.22(ICD-9) Repository 04/10/2018 Unknown 401.1 - Benign JoDevorah soto Active [facility] essential Community hypertension / Hospital 401.1(ICD-9) Repository 03/28/2018 Admitting [facility]pert[facility] / I16.0(ICD-10) [place] D [place] Rep[place] 03/28/2018 Admitting Other forms of HEDDLESON, 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 / TONY D [place] I20.8(ICD-10) Repository 03/28/2018 Admitting Precordial pain / SEAN, [facility] Diagnosis R07.2(ICD-10) [place] 03/28/2018 Admitting Mixed hyperlipidemia HEDDLECHARLES, [facility] / E78.2(ICD-10) [place] [facility] [place] Rep[place] 03/28/2018 Working Chest pain, NA [facility] unspecified / [place] R07.9(ICD-10) Repository 03/28/2018 Working Syncope and collapse NA [facility] / R55(ICD-10) [place] 03/28/2018 Chronic Essential (primary) NA [facility] hypertension / [place] I10(ICD-[place]) Repository 02/22/2018 Admitting Sinus Congestion / TYRONE JEFFERSON [facility] 859() B [place] ([place] Rep[place] 02/22/2018 Admitting Other / 0() RONNY, TYRONE [facility] B [place] Repository PROCEDURES PROCEDURES No Procedure Records FoundRESULTS RESULTS HEMOGLOBIN A1C Collected: 04/09/2018 Status: F Source: [place] 5:53 PM [facility] REPOSITORY TYPE CODE TESTS RESULT OUT OF RANGE REFERENCE UNITS LAB L501.9985 4.2-6.3 % Normal HGB A1C 6.3 Performed By: #### L501.9985, L500.2500, L500.3400, L500.4100, L502.0250 #### [facility] [address] [place], [place], [address] BASIC METABOLIC Collected: 04/09/2018 Status: F Source: [place] PROFILE (BMP) 5:53 PM [facility] REPOSITORY TYPE CODE TESTS RESULT OUT OF RANGE REFERENCE UNITS LAB L501.0100 74-106 mg/dL Normal GLU 89 Result Comment: Please note revised GLUCOSE reference range effective 2017. LAB L501.1000 7-18 mg/dL High BUN 20 LAB L501.1100 0.70-1.30 mg/dL Normal CREAT,SERUM 1.04 Result Comment: The validity of the calculated GFR AND GFRAA in patients over 70 years has not been determined. Clinical correlation is essential. LAB L501.1110 >60 mL/min Normal EST GFR 81 Result Comment: Non- GFR Calc LAB L501.1115 >60 mL/min Normal EST GFR - AA 98 Result Comment: GFR Calc LAB L501.1300 10-20 RATIO Normal BUN/CRE 19.2 LAB L501.2200 8.5-10.1 mg/dL CA Normal 9.0 LAB L501.5300 136-145 mmol/L NA Normal 139 LAB L501.5600 3.5-5.1 mmol/L K Normal 4.3 LAB L501.5900 98-107 mmol/L CL Normal 102 LAB L501.6100 21.0-32.0 mmol/L Normal CO2 29.0 LAB L501.6200 5-15 Normal GAP 8 Performed By: #### L501.9985, L500.2500, L500.3400, L500.4100, L502.0250 #### [facility] [address] [facility] [place], [address] LIVER PROFILE Collected: 04/09/2018 Status: F Source: [place] 5:53 PM [facility] REPOSITORY TYPE CODE TESTS RESULT OUT OF RANGE REFERENCE UNITS LAB L501.1500 6.4-8.2 g/dL Normal T PROT 7.3 LAB L501.1800 3.2-5.0 g/dL Normal ALB 4.2 LAB L501.1950 2.2-4.2 g/dL Normal GLOB 3.1 LAB L501.4100 15-37 U/L Normal AST 25 LAB L501.4305 45-117 U/L Normal ALK P 64 LAB L501.4405 16-61 U/L Normal ALT 56 LAB L501.4600 0.20-1.00 mg/dL Normal T BILI 0.30 LAB L501.4700 0.00-0.30 mg/dL Normal D BILI 0.11 Performed By: #### L501.9985, L500.2500, L500.3400, L500.4100, L502.0250 #### [facility] [address] [place], [address] LIPID PROFILE Collected: 04/09/2018 Status: F Source: [place] 5:53 PM [facility] REPOSITORY TYPE CODE TESTS RESULT OUT OF RANGE REFERENCE UNITS LAB L501.4900 200 mg/dL Normal CHOL 160 Result Comment: <200 mg/dL Desirable 200-240 mg/dL Borderline >240 mg/dL High Risk LAB L501.5000 mg/dL Normal TRIG 148 Result Comment: The drugs N-Acetylcysteine and Metamizole may falsely depress this assay. Serum Triglycerides Reference Interval Normal <150 mg/dL Borderline high 150 - 199 mg/dL High 200 - 499 mg/dL Very High > or = 500 mg/dL LAB L501.6400 mg/dL Normal HDL 45 Result Comment: The drugs N-Acetylcysteine and Metamizole may falsely depress this assay. Reference Range HDL <40 mg/dL Low HDL Cholesterol HDL >or= 60 mg/dL High HDL Cholesterol LAB L501.6500 0-130 mg/dL Normal LDL 85 LAB L501.6600 5-40 mg/dL Normal VLDL 30 Performed By: #### L501.9985, L500.2500, L500.3400, L500.4100, L502.0250 #### [facility] [address] [facility] [address] [place], [place], [id number] MICROALB:CREAT Collected: 04/09/2018 Status: F Source: [facility] UR 5:53 PM [facility] REPOSITORY TYPE CODE TESTS RESULT OUT OF RANGE REFERENCE UNITS LAB L501.1200 NO RANGE EST. mg/dL Normal UR CREAT 145.00 LAB L502.0500 NO RANGE EST. mg/L Normal 8.8 MICROALBUMIN ,UR LAB L502.0600 <30 mg/g CRE mg/g CRE Normal 6.1 MALB:CREAT Performed By: #### L501.9985, L500.2500, L500.3400, L500.4100, L502.0250 #### [facility] [address] [place], [address] CBC Collected: 03/29/2018 Status: F Source: [facility] [place] 5:30 AM SYSTEM ([place]) REPOSITORY TYPE CODE TESTS RESULT OUT OF REFERENCE UNITS RANGE LAB WBC 3.6-11.0 /cmm WBC COUNT 7.4 LAB RBC 4.0-6.1 /cmm RBC COUNT 4.60 LAB HGB 14.0-18.0 G/DL Low HEMOGLOBIN 13.3 LAB HCT 42.0-52.0 % Low HEMATOCRIT 39.8 LAB MCV 80.0-100.0 FL MCV 86.5 LAB MCH 26.0-35.0 PG MCH 28.9 LAB MCHC 27.0-37.0 G/DL MCHC 33.4 LAB RDW 11.5-14.5 % RDW 13.5 LAB PLTC 130.0-400.0 /cmm PLATELET COUNT 239 LAB MPV 7.4-11.0 FL MPV 7.9 LAB DTYPE % DTYPE AUTO DIFF LAB NEUT 37.0-75.0 % NEUTROPHIL 56.9 LAB ALYMP 20.0-55.0 % LYMPHOCYTE 32.6 LAB AOMONO 0.0-10.0 % MONOCYTE 8.1 LAB EOS 0.0-11.0 % EOSINOPHIL 1.9 LAB BASO 0.0-2.0 % BASOPHIL 0.5 LAB ANC 1.0-7.0 x10 ABSOLUTE NEUTROPHIL COUNT 4.2 LAB ALYM X10 ABSOLUTE LYMPHOCYTE 2.40 LAB AMONO X10 ABSOLUTE MONOCYTE 0.6 LAB AEO X10 ABSOLUTE EOS 0.10 LAB ABAS X10 ABSOLUTE BAS 0.0 Performed By: #### RENF, LIP2, MG #### Testing performed at [address] [address] RENAL PANEL,FASTING Collected: 03/29/2018 Status: F [facility] REPOS[place]ORY TYPE CODE TESTS RESULT OUT OF REFERENCE UNITS RANGE LAB GLF 70-100 MG/DL High GLUCOSE 106 FASTING Result Comment: NORMAL <100 mg/dL PREDIABETES 101-126 mg/dL DIABETES 126 mg/dL or higher LAB BUN 7-20 MG/DL BLOOD UREA NITROGEN 17 LAB CRET 0.7-1.2 MG/DL CREATININE SERUM 1.1 LAB NA 137-145 MMOL/L SODIUM 141 LAB K 3.5-5.1 MMOL/L POTASSIUM 4.5 LAB CL 98-107 MMOL/L CHLORIDE 103 Result Comment: Please note: Triglyceride levels of 600mg/dL or higher may positively bias chloride results by approximately 2.1 mmol LAB CO2 22-30 MMOL/L CO2 High 31 LAB ALB 3.5-5.0 G/dl ALBUMIN 4.0 LAB CA 8.4-10.2 MG/DL CALCIUM 9.4 LAB PHOS 2.5-4.5 MG/DL PHOSPHOROUS 4.4 LAB GFR ml/min/1.73s q.m EST. GFR,Non >60 Palestinian LAB GFRB ml/min/1.73s q.m EST. GFR, >60 Palestinian LAB GFRCOM GFR Information Average GFR for 40-49 years old = 99. Result Comment: Chronic Kidney disease, GFR = <60. Kidney failure, GFR = <15. The GFR estimate is not adjusted for extreme body surface area or acute process, nor has it been validated for women or ethnic groups other than and . Performed By: #### RENF, LIP2, MG #### [place] [address] LIPID PROFILE Collected: 03/29/2018 Status: F Source: [place] 5:30 AM [place] ([place]) REPOSITORY TYPE CODE TESTS RESULT OUT OF REFERENCE UNITS RANGE LAB CHOLL 120-200 MG/DL CHOLESTEROL 149 LAB TRIGL 0-150 MG/DL TRIGLYCERIDES 130 LAB HDL 26-63 MG/DL HDL 40 LAB LDL MG/DL LDL 83 LAB VLDL 5.0-25 MG/DL VLDL High 26 LAB CHRAT RATIO CHOL/HDL RATIO 3.73 Result Comment: RISK TOTAL/HDL RATIO MEN WOMEN 1/2 AVERAGE 3.43 3.27 AVERAGE 4.97 4.44 2X AVERAGE 9.55 7.05 3X AVERAGE 23.99 11.04 Performed By: #### RENF, LIP2, MG #### [place] [address] MAGNESIUM Collected: 03/29/2018 Status: F Source: [place] 5:30 AM [place] REPOSITORY TYPE CODE TESTS RESULT OUT OF REFERENCE UNITS RANGE LAB MG 1.6-2.3 MG/DL MAGNESIUM 1.8 Performed By: #### RENF, LIP2, MG #### [place] [address] TSH Collected: 03/29/2018 Status: F Source: [place] 5:30 AM [place] REPOSITORY TYPE CODE TESTS RESULT OUT OF RANGE REFERENCE UNITS LAB TSH2 0.46-4.68 uIU/ML TSH 1.850 Performed By: #### RENF, LIP2, MG #### Testing performed at [address] [address] HEMOGLOBIN A1C Collected: 03/29/2018 Status: F Source: [facility] My[facility] 5:30 AM [place] REPOSITORY TYPE CODE TESTS RESULT OUT OF RANGE REFERENCE UNITS LAB HA1C 0-6 % HGB A1C 5.8 Result Comment: NORMAL <5.7% PREDIABETES 5.7-6.4% DIABETES 6.5% OR HIGHER LAB EAG mg/dL ESTIMATED AVERAGE GLUCOSE 120 Performed By: #### HA1CT #### Testing performed at [address] [address] ISTAT TROPONIN I Collected: 03/28/2018 Status: F Source: [facility] [place] 10:31 PM [place] ([place] REPOSITORY TYPE CODE TESTS RESULT OUT OF REFERENCE UNITS RANGE LAB ITRO 0-0.08 ng/mL ISTAT TROPONIN <0.02 I Performed By: #### ITROT #### Testing performed at [address] [address] ISTAT TROPONIN I Collected: 03/28/2018 Status: F Source: [facility] 4:30 PM [place] REPOSITORY TYPE CODE TESTS RESULT OUT OF REFERENCE UNITS RANGE LAB ITRO 0-0.08 ng/mL ISTAT TROPONIN <0.02 I MRSA SCREEN Collected: 03/28/2018 Status: F Source: [place] 2:50 PM [place] REPOSITORY TYPE CODE TESTS RESULT OUT OF REFERENCE UNITS RANGE LAB MRSAS MRSA NEGATIVE SCREEN LAB SAS STAPH POSITIVE AUREUS SCREEN Result Comment: TESTING PERFORMED BY PCR Performed By: #### MRSAST #### Testing performed at [address] [place] [address] URINE MACROSCOPIC Collected: 03/28/2018 Status: F Source: [place] 11:30 AM [place] REPOSITORY TYPE CODE TESTS RESULT OUT OF RANGE REFERENCE UNITS LAB UCOL YELLOW URINE COLOR YELLOW LAB [facility] CLEAR URINE CLARITY CLEAR LAB USPG 1.010-1.025 URINE SPEC GRAVITY 1.015 LAB UPH 5.0-7.0 URINE PH 7.0 LAB AUTP NEGATIVE mg/dl URINE TOTAL PROTEIN NEGATIVE LAB UGL NEGATIVE mg/dl URINE GLUCOSE NEGATIVE LAB UKET NEGATIVE mg/dl URINE KETONE NEGATIVE LAB UBIL NEGATIVE URINE BILIRUBIN NEGATIVE LAB UHGB NEGATIVE URINE Abnormal HEMOGLOBIN TRACE-LYSED LAB UNIT NEGATIVE URINE NITRATES NEGATIVE LAB UROB 0.2-1.0 mg/dl URINE UROBILINOGEN 0.2 LAB ULEUK NEGATIVE URINE LEUKOTEST NEGATIVE Performed By: #### ALEXANDER SPANN #### Testing performed at [address] [address] URINE MICROSCOPIC Collected: 03/28/2018 Status: F Source: [facility] 11:30 AM [place] ([place] REPOSITORY TYPE CODE TESTS RESULT OUT OF REFERENCE UNITS RANGE LAB UWBC NEGATIVE /HPF URINE WBC'S NEGATIVE LAB URBC NEGATIVE /HPF URINE 1 RBC'S TO 5 LAB EPI /HPF EPITHELIAL CELLS NONE LAB MUCUS NEGATIVE MUCUS NEGATIVE LAB BACT NEGATIVE BACTERIA NEGATIVE LAB SAUD NONE CRYSTAL NONE LAB CASTS NONE /LPF CASTS NONE LAB UCOM URINE COMMENT CULTURE CRITERIA NOT MET, NO CULTURE PERFORMED. Performed By: #### MARIA INES, ALEXANDER #### Testing performed at [address] [address] CBC Collected: 03/28/2018 Status: F Source: [facility] 11:05 AM [place] REPOSITORY TYPE CODE TESTS RESULT OUT OF REFERENCE UNITS RANGE LAB WBC 3.6-11.0 /cmm WBC COUNT 7.8 LAB RBC 4.0-6.1 /cmm RBC COUNT 4.94 LAB HGB 14.0-18.0 G/DL HEMOGLOBIN 14.3 LAB HCT 42.0-52.0 % Low HEMATOCRIT 41.6 LAB MCV 80.0-100.0 FL MCV 84.3 LAB MCH 26.0-35.0 PG MCH 28.9 LAB MCHC 27.0-37.0 G/DL MCHC 34.3 LAB RDW 11.5-14.5 % RDW 13.8 LAB PLTC 130.0-400.0 /cmm PLATELET COUNT 266 LAB MPV 7.4-11.0 FL MPV 8.0 LAB DTYPE % DTYPE AUTO DIFF LAB NEUT 37.0-75.0 % NEUTROPHIL 43.8 LAB ALYMP 20.0-55.0 % LYMPHOCYTE 44.7 LAB AOMONO 0.0-10.0 % MONOCYTE 7.8 LAB EOS 0.0-11.0 % EOSINOPHIL 3.1 LAB BASO 0.0-2.0 % BASOPHIL 0.6 LAB ANC 1.0-7.0 x10 ABSOLUTE NEUTROPHIL COUNT 3.4 LAB ALYM X10 ABSOLUTE LYMPHOCYTE 3.50 LAB AMONO X10 ABSOLUTE MONOCYTE 0.6 LAB AEO X10 ABSOLUTE EOS 0.20 LAB ABAS X10 ABSOLUTE BAS 0.0 Performed By: #### ACBC, ITROT, CMPF #### Testing performed at [address] [address] ISTAT TROPONIN I Collected: 03/28/2018 Status: F Source: [facility] 11:05 AM [place] REPOS[place]ORY TYPE CODE TESTS RESULT OUT OF REFERENCE UNITS RANGE LAB ITRO 0-0.08 ng/mL ISTAT TROPONIN <0.02 I Performed By: #### ACBC, ITROT, CMPF #### Testing performed at [address] [address] CMP FASTING Collected: 03/28/2018 Status: F Source: [facility] 11:05 AM [place] REPOS[place] TYPE CODE TESTS RESULT OUT OF REFERENCE UNITS RANGE LAB GLF 70-100 MG/DL High GLUCOSE 101 FASTING Result Comment: NORMAL <100 mg/dL PREDIABETES 101-126 mg/dL DIABETES 126 mg/dL or higher LAB BUN 7-20 MG/DL BLOOD UREA 14 NITROGEN LAB CRET 0.66-1.25 MG/DL CREATININE SERUM 1.0 LAB NA 136-145 MMOL/L SODIUM Low 135 LAB K 3.5-5.1 MMOL/L POTASSIUM 4.1 LAB CL 98-107 MMOL/L CHLORIDE 99 LAB CA 8.4-10.2 MG/DL CALCIUM 9.5 LAB TP 6.3-8.2 GM/DL TOTAL PROTEIN 7.8 LAB ALB 3.5-5.0 G/dl ALBUMIN 4.7 LAB TBIL 0.2-1.2 MG/DL BILIRUBIN TOTAL 0.8 LAB AST 15-41 IU/L AST 38 LAB ALKP 38-126 IU/L ALK 50 PHOSPHATASE LAB CO2 22-30 MMOL/L CO2 28 LAB AG 1.3-2.2 RATIO A:G RATIO 1.5 LAB ALT 17-63 IU/L ALT 59 LAB GFR ml/min/1.73 sq.m EST. GFR,Non >60 LAB GFRB ml/min/1.73 sq.m EST. GFR, >60 Palestinian LAB GFRCOM GFR Information Average GFR for 40-49 years old = 99. Result Comment: Chronic Kidney disease, GFR = <60. Kidney failure, GFR = <15. The GFR estimate is not adjusted for extreme body surface area or acute process, nor has it been validated for women or ethnic groups other than and . Performed By: #### ACBC, ITROT, CMPF #### Testing performed at [facility] [address] [place] [address] ALLERGIES ALLERGIES DATE TYPE / CODE NAME / CODE REACTION SEVERITY SOURCE 02/06/2015 Drug No Known Unknown [facility] Allergy/4160 Allergies/F00 Hospital 37743(SNOMED [id number](RXNOR Repository CT) M) ENCOUNTERS ENCOUNTERS ADMIT/DISCHARGE ACCOUNT NUMBER ADMITTING ENCOUNTER LOCATION SOURCE CLASS 04/09/2018 [id number] Ambulatory [facility] ding:LABSPEC Repository 03/28/2018/03/29/19 [id number] [facility] Ambulatory Buildin [place] [address] [address] MSRoom: System ([place]) [address]Bed: 1 Repository 03/28/2018/03/28/19 [id number] [facility] [place] [address] DRoom: [place] ([place]) E339Qip: Repository E003 03/28/2018 [id number] Ambulatory Buildin [facility] [place] ([place] Repository 02/22/2018 [id number] Ambulatory Buildin [facility] [place] ([place] Repository PAYERS PAYERS ENCOUNTER GUARANTOR PAYER SUBSCRIBER SOURCE 04/09/2018 RAQUEL J Primary RAQUEL J [place] [id number] [facility] [address]Xpfcnq [id number] Number: Repository [id number]: [phone] [phone] () Date:[id number], [place] [address]AN: 04/09/2018 Secondary NOT GIVENUNK [facility] Insurance:SELF PAY [facility] Number: Effective Repository Date:2018-04-09
== END ==
PROVIDERS: Family Provider Family Medicine; PCP Family Medicine; Referring Provider Family Medicine; Visit Provider Family Medicine
DX: I10 Essential (primary) hypertension (principal); R73.02 Impaired glucose tolerance (oral)
CPT/HCPCS: 80048; 80061; 80076; 82043; 82570; 83036

== ENCOUNTER → 2019-09-06 | Outpatient (CLI) | payer OTHER, SELFPAY ==
[2015-02-06 23:22] VITALS: BMI 32.7
[2019-09-06 18:08] LABS: AST(SGOT) 21 U/L (15-37); Alanine Aminotransfer ALT/SGPT 46 U/L (16-61); Alkaline Phosphatase 53 U/L (45-117); Anion Gap 7 (5-15); BUN 23 mg/dL (7-18); BUN/Creat Ratio 20.4 RATIO (10-20); Bilirubin, Direct 0.11 mg/dL (0.00-0.30); Calcium,Total 9.2 mg/dL (8.5-10.1); Chloride 101 mmol/L (98-107); Cholesterol 176 mg/dL (200); Creatinine, Serum 1.13 mg/dL (0.70-1.30); EST Glomerular Filtration Rate 73 mL/min (>60); Est Glom Filt Rate - Afr Amer 88 mL/min (>60); Globulin 3.8 g/dL (2.2-4.2); Glucose 97 mg/dL (74-106); High Density Lipoprotein 51 mg/dL; Potassium 4.2 mmol/L (3.5-5.1); Protein, Total 7.8 g/dL (6.4-8.2); Sodium Level 137 mmol/L (136-145); Triglycerides 142 mg/dL; Very Low Density Lipoprotein 28 mg/dL (5-40)
[2019-09-06 18:14] LABS: Microalbumin,Random Urine 8.2 mg/L (NO RANGE EST.)
== END | disposition home or self-care (01) ==
LOC: MTLAB 16:45
PROVIDERS: PCP Family Medicine; Referring Provider Family Medicine; Visit Provider Family Medicine
DX: E11.9 Type 2 diabetes mellitus without complications (principal)
CPT/HCPCS: 36415; 80048; 80061; 80076; 82043; 82570

== ENCOUNTER → 2021-10-09 | Outpatient (CLI) | payer OTHER, SELFPAY ==
--- NOTE | 2021-10-09 17:11 | RAD_ITS ---
EXAM: XR ABDOMEN, 2 VIEWS CLINICAL INDICATION: SIDE PAIN TECHNIQUE: Frontal view of the abdomen/pelvis with upright view of the abdomen. This report was created using [employer] report generation technology. 4 total views. COMPARISON: None. FINDINGS: LOWER THORAX: Unremarkable lung bases. INTRAPERITONEAL SPACE: No evidence of ascites or organomegaly. No free air on upright exam. GASTROINTESTINAL TRACT: Moderate stool in the right colon, mild gas and stool in the transverse colon, mild gas in the rectosigmoid. No dilated small bowel. ORGANS: Unremarkable as visualized. No organomegaly. No abnormal calcifications. BONES/JOINTS: No acute pathology. SOFT TISSUES: No acute pathology. RAD/Abd Inc Decub and/or Erect IMPRESSION: Nonobstructive bowel gas pattern. No free air. Moderate stool in the right colon. Electronically Signed: Emili Page MD at 5:42 EDT ,
== END | disposition home or self-care (01) ==
PROVIDERS: PCP Family Medicine; Referring Provider Family Medicine; Visit Provider Family Medicine
DX: R10.9 Unspecified abdominal pain (principal)
CPT/HCPCS: 74019

== ENCOUNTER → 2021-11-12 | Outpatient (CLI) | payer OTHER, SELFPAY ==
[2021-11-12 18:20] LABS: Microalbumin,Random Urine 9.1 mg/L (NO RANGE EST.); Microalbumin:Creatinine Ratio 4.3 mg/g CRE (<30 mg/g CRE)
[2021-11-12 18:57] LABS: AST(SGOT) 22 U/L (15-37); Alanine Aminotransfer ALT/SGPT 43 U/L (16-61); Anion Gap 6 (5-15); BUN 20 mg/dL (7-18); BUN/Creat Ratio 14.8 RATIO (10-20); Calcium,Total 8.8 mg/dL (8.5-10.1); Chloride 103 mmol/L (98-107); Cholesterol 155 mg/dL (200); Creatinine, Serum 1.35 mg/dL (0.70-1.30); EST Glomerular Filtration Rate 59 mL/min (>60); Est Glom Filt Rate - Afr Amer 71 mL/min (>60); Glucose 96 mg/dL (74-106); High Density Lipoprotein 49 mg/dL; PSA,Total - Annual Screen 1.38 ng/mL (0.00-4.00); Potassium 4.1 mmol/L (3.5-5.1); Sodium Level 137 mmol/L (136-145); Triglycerides 118 mg/dL; Very Low Density Lipoprotein 24 mg/dL (5-40)
== END | disposition home or self-care (01) ==
LOC: MFPLAB 17:07
PROVIDERS: PCP Family Medicine; Visit Provider Family Medicine
DX: Z00.00 Encounter for general adult medical examination without abnormal findings (principal); E78.00 Pure hypercholesterolemia, unspecified; I10 Essential (primary) hypertension; Z12.5 Encounter for screening for malignant neoplasm of prostate
CPT/HCPCS: 36415; 80048; 80061; 82043; 82570; 84153; 84450; 84460; G0103

== ENCOUNTER → 2022-11-18 | Outpatient (CLI) | payer OTHER, SELFPAY ==
[2022-11-18 18:56] LABS: AST(SGOT) 18 U/L (15-37); Alanine Aminotransfer ALT/SGPT 33 U/L (16-61); Anion Gap 4 (5-15); BUN 21 mg/dL (7-18); BUN/Creat Ratio 18.9 RATIO (10-20); Calcium,Total 9.1 mg/dL (8.5-10.1); Chloride 104 mmol/L (98-107); Cholesterol 160 mg/dL (200); Creatinine, Serum 1.11 mg/dL (0.70-1.30); EST Glomerular Filtration Rate 73 mL/min (>60); Est Glom Filt Rate - Afr Amer 89 mL/min (>60); Glucose 102 mg/dL (74-106); High Density Lipoprotein 57 mg/dL; PSA,Total - Annual Screen 1.55 ng/mL (0.00-4.00); Potassium 4.1 mmol/L (3.5-5.1); Sodium Level 137 mmol/L (136-145); Triglycerides 127 mg/dL; Very Low Density Lipoprotein 25 mg/dL (5-40)
== END | disposition home or self-care (01) ==
LOC: MTLAB 17:01
PROVIDERS: PCP Family Medicine; Referring Provider Family Medicine; Visit Provider Family Medicine
DX: I10 Essential (primary) hypertension (principal); E11.9 Type 2 diabetes mellitus without complications; E78.00 Pure hypercholesterolemia, unspecified; Z12.5 Encounter for screening for malignant neoplasm of prostate
CPT/HCPCS: 36415; 80048; 80061; 84153; 84450; 84460; G0103

== ENCOUNTER → 2023-01-22 | Outpatient (CLI) | payer OTHER, SELFPAY ==
[2023-01-22 17:40] LABS: Absolute Lymphocyte Count 1.97 X10^3/uL (0.83-4.51); Absolute Neutrophil Count 3.4 X10^3/uL (2.0-7.7); Basophil# 0.06 X10^3/uL; Eosinophil# 0.15 X10^3/uL; Eosinophils% 2.5 % (0-5); Hematocrit 28.4 % (40-54); Hemoglobin 8.7 g/dL (13.0-16.5); Lymphocyte # 1.97 X10^3/ul (0.83-4.51); Lymphocyte % 32.3 % (19-41); Mean Corp Hgb Conc 30.6 g/dL (32-36); Mean Corpuscular Hgb 26.3 pg (27.0-32.0); Mean Corpuscular Volume 85.8 fL (80-94); Mean Platelet Vol. 9.9 fl (6.2-12.0); Monocyte% 8.2 % (0-10); NRBC Flagged by Analyzer 0 % (0-5); Neutrophil % 55.7 % (47-70); Platelet Count 352 K/mm3 (150-450); RBC Distribution Width SD 43.8 fl (35.1-43.9); Red Blood Count 3.31 M/mm3 (4.6-6.2); White Blood Count 6.1 K/mm3 (4.4-11.0)
== END | disposition home or self-care (01) ==
LOC: MTLAB 15:18
PROVIDERS: PCP Family Medicine; Referring Provider Family Medicine; Visit Provider Family Medicine
DX: K31.82 Dieulafoy lesion (hemorrhagic) of stomach and duodenum (principal)
CPT/HCPCS: 36415; 85025

== ENCOUNTER → 2023-01-30 | Outpatient (CLI) | payer OTHER, SELFPAY ==
[2023-01-30 12:41] LABS: Absolute Lymphocyte Count 1.77 X10^3/uL (0.83-4.51); Absolute Neutrophil Count 3.5 X10^3/uL (2.0-7.7); Basophil# 0.03 X10^3/uL; Basophil% 0.5 % (0-1); Eosinophil# 0.08 X10^3/uL; Eosinophils% 1.3 % (0-5); Hematocrit 31.7 % (40-54); Hemoglobin 9.5 g/dL (13.0-16.5); Immature Platelet Fraction 2.6 % (1.0-7.9); Lymphocyte # 1.77 X10^3/ul (0.83-4.51); Lymphocyte % 28.5 % (19-41); Mean Corpuscular Hgb 25.7 pg (27.0-32.0); Mean Corpuscular Volume 85.9 fL (80-94); Mean Platelet Vol. 10.2 fl (6.2-12.0); Monocyte# 0.82 X10^3/uL; Monocyte% 13.2 % (0-10); NRBC Flagged by Analyzer 0 % (0-5); Neutrophil # 3.49 X10^3/uL (2.7-7.7); Neutrophil % 56.2 % (47-70); Platelet Count 280 K/mm3 (150-450); RBC Distribution Width SD 43.7 fl (35.1-43.9); RET-HE 23.9 pg (30-35); Red Blood Count 3.69 M/mm3 (4.6-6.2); Reticulocyte Count 2.21 % (0.5-1.5); White Blood Count 6.2 K/mm3 (4.4-11.0)
[2023-01-30 12:56] LABS: Vitamin B12 578 pg/mL (211-911)
[2023-01-30 13:00] LABS: Ferritin 11 ng/mL (26-388); Iron 65 ug/dL (65-175); Iron Binding Capacity,Total 476 ug/dL (250-450); PERCENT IRON SATURATION 13.7 % (15.0-55.0)
== END | disposition home or self-care (01) ==
LOC: MFPLAB 10:58
PROVIDERS: PCP Family Medicine; Visit Provider Family Medicine
DX: K31.82 Dieulafoy lesion (hemorrhagic) of stomach and duodenum (principal)
CPT/HCPCS: 36415; 82607; 82728; 83540; 83550; 85025; 85045

== ENCOUNTER → 2023-03-11 | Outpatient (CLI) | payer OTHER, SELFPAY ==
[2023-03-11 17:32] LABS: Absolute Lymphocyte Count 2.07 X10^3/uL (0.83-4.51); Absolute Neutrophil Count 3.6 X10^3/uL (2.0-7.7); Basophil# 0.06 X10^3/uL; Basophil% 0.9 % (0-1); Eosinophil# 0.21 X10^3/uL; Eosinophils% 3.2 % (0-5); Hematocrit 28.4 % (40-54); Hemoglobin 8.3 g/dL (13.0-16.5); Lymphocyte # 2.07 X10^3/ul (0.83-4.51); Lymphocyte % 31.9 % (19-41); Mean Corp Hgb Conc 29.2 g/dL (32-36); Mean Corpuscular Hgb 22.6 pg (27.0-32.0); Mean Corpuscular Volume 77.2 fL (80-94); Mean Platelet Vol. 10.9 fl (6.2-12.0); Monocyte# 0.51 X10^3/uL; Monocyte% 7.9 % (0-10); NRBC Flagged by Analyzer 0 % (0-5); Neutrophil # 3.62 X10^3/uL (2.7-7.7); Neutrophil % 55.9 % (47-70); Platelet Count 329 K/mm3 (150-450); RBC Distribution Width CV 15.1 % (11.6-14.6); RBC Distribution Width SD 42.1 fl (35.1-43.9); Red Blood Count 3.68 M/mm3 (4.6-6.2); White Blood Count 6.5 K/mm3 (4.4-11.0)
== END | disposition home or self-care (01) ==
LOC: MFPLAB 15:57
PROVIDERS: PCP Family Medicine; Visit Provider Family Medicine
DX: D64.9 Anemia, unspecified (principal)
CPT/HCPCS: 36415; 85025

== ENCOUNTER → 2023-03-18 | Outpatient (CLI) | payer OTHER, SELFPAY ==
[2023-03-18 17:36] LABS: Absolute Lymphocyte Count 2.21 X10^3/uL (0.83-4.51); Absolute Neutrophil Count 3.4 X10^3/uL (2.0-7.7); Basophil# 0.06 X10^3/uL; Basophil% 0.9 % (0-1); Eosinophil# 0.19 X10^3/uL; Hematocrit 28.5 % (40-54); Hemoglobin 8.4 g/dL (13.0-16.5); Lymphocyte # 2.21 X10^3/ul (0.83-4.51); Lymphocyte % 34.7 % (19-41); Mean Corp Hgb Conc 29.5 g/dL (32-36); Mean Corpuscular Hgb 22.3 pg (27.0-32.0); Mean Corpuscular Volume 75.6 fL (80-94); Mean Platelet Vol. 10.6 fl (6.2-12.0); Monocyte# 0.45 X10^3/uL; Monocyte% 7.1 % (0-10); NRBC Flagged by Analyzer 0 % (0-5); Neutrophil # 3.44 X10^3/uL (2.7-7.7); Neutrophil % 54.1 % (47-70); Platelet Count 351 K/mm3 (150-450); RBC Distribution Width CV 15.5 % (11.6-14.6); RBC Distribution Width SD 42.7 fl (35.1-43.9); Red Blood Count 3.77 M/mm3 (4.6-6.2); White Blood Count 6.4 K/mm3 (4.4-11.0)
== END | disposition home or self-care (01) ==
LOC: MFPLAB 16:50
PROVIDERS: Family Medicine; PCP Family Medicine; Visit Provider Family Medicine
DX: D64.9 Anemia, unspecified (principal)
CPT/HCPCS: 36415; 85025